=== PATIENT | female | born 1985 | race Caucasian/White ===

== ENCOUNTER 2018-05-26 20:37 | Emergency (ER) | payer OTHER ==
[~2018-05-26] VITALS: Ht 160 cm; Wt 63.3 kg
[~2018-05-26 20:37] MED LIST: ENOXAPARIN100 MG/1 M SC; PANTOPRAZOLE SO40 MG PO; PRENATAL VITAM1 EAC6 PO
[2018-05-26 23:13] VITALS: BP 114/85
== END 2018-05-26 23:14 | disposition home or self-care (01) ==
LOC: EME 20:37
DX: M79.605 Pain in left leg (principal); D17.24 Benign lipomatous neoplasm of skin and subcutaneous tissue of left leg; Z86.711 Personal history of pulmonary embolism; Z88.2 Allergy status to sulfonamides
CPT/HCPCS: 93971; 99281; 99284